=== PATIENT | male | born 1960 | race Caucasian/White ===

== ENCOUNTER 2018-04-06 08:00 | Inpatient (IN) | payer OTHER ==
--- NOTE | 2018-04-06 07:57 | HP ---
Admitting History and Physical - Admission Chief Complaint: left knee osteoarthritis x years History of Present Illness: 57 year old male presents today regarding his left knee. Longstanding history of left knee osteoarthritis. Patient complains of pain, limited ROM, difficulty ambulating and difficulty completing ADLs. Patient has failed conservative treatment measures including PO medication, activity modification, injections and an exercise program. At this point, patient wishes to proceed with surgical intervention - left total knee arthroplasty (MAKOplasty). History Source: Patient - Past Medical History Cardiovascular: Yes: HTN - Past Surgical History Additional Past Surgical History: See written history & physical. - Smoking History Smoking history: Current some day smoker Have you smoked in the past 12 months: Yes Aproximately how many cigarettes per day: 0 - Alcohol/Substance Use Hx Alcohol Use: Yes Home Medications - Allergies Allergies/Adverse Reactions: Allergies Allergy/AdvReac Type Severity Reaction Status Date / Time No Known Drug Allergies Allergy Verified 03/24/18 12:45 - Home Medications Home Medications: Ambulatory Orders Atenolol [Tenormin -] 25 mg PO DAILY 03/24/18 Review of Systems - Review of Systems Musculoskeletal: reports: Crepitus (left knee), Decreased ROM (left knee), Joint Pain (left knee), Joint Swelling (left knee) Physical Examination Constitutional: Yes: Well Nourished, No Distress Eyes: Yes: Conjunctiva Clear HENT: Yes: Atraumatic, Normocephalic Neck: Yes: Supple Cardiovascular: Yes: Regular Rate and Rhythm Respiratory: Yes: Regular Gastrointestinal: Yes: Soft ...Rectal Exam: Yes: Deferred Musculoskeletal: Yes: Joint Stiffness (left knee), Joint Swelling (left knee) Assessment/Plan 57 year old male presents today regarding his left knee. Longstanding history of left knee osteoarthritis. Patient complains of pain, limited ROM, difficulty ambulating and difficulty completing ADLs. Patient has failed conservative treatment measures including PO medication, activity modification, injections and an exercise program. At this point, patient wishes to proceed with surgical intervention - left total knee arthroplasty (MAKOplasty). Pros, cons, risks, benefits and alternatives of a left total knee arthroplasty (MAKOplasty) were discussed with the patient at length. Patient confirms his understanding and consents to proceed with a left total knee arthroplasty (MAKOplasty).
[~2018-04-06 08:00] MED LIST: CEFAZOLIN 2 GM/D5W 2 GM/50 ML ML IVPB ONE; CELECOXIB 200 MG CAPSULE PO ONE; GABAPENTIN 300 MG CAPSULE (FP) PO ONE; PANTOPRAZOLE 40 MG TABLET (FP) PO ONE; ROPIVICAINE 0.2%/MORPH PF/KETOROLAC - 51ML DISP.SYRINGE IA ONE; TRANEXAMIC ACID 1000 MG/10 ML VIAL IVPUSH ONE; oxyCODONE HCL 10 MG SUSTAINED ACTING TABLET PO ONE
[2018-04-06] MEDS ORDERED: ceFAZolin SODIUM 1 GM VIAL ONE ×2 (09:32→12:00)
[2018-04-06] MEDS ORDERED: VANCOMYCIN 1,000 MG VIAL (RESTRICTED TO ID ONLY) ONE (09:32)
[2018-04-06] MEDS ORDERED: TRANEXAMIC ACID 1000 MG/10 ML VIAL ONE ×3 (09:32→15:48)
[2018-04-06 09:51] VITALS: BMI 32.1
[2018-04-06] MEDS ORDERED: oxyCODONE HCL 10 MG SUSTAINED ACTING TABLET ONE (09:55)
[2018-04-06] MEDS ORDERED: GABAPENTIN 300 MG CAPSULE (FP) ONE (09:55)
[2018-04-06] MEDS ORDERED: PANTOPRAZOLE 40 MG TABLET (FP) ONE (09:55)
[2018-04-06] MEDS ORDERED: CELECOXIB 200 MG CAPSULE ONE (09:56)
[2018-04-06] MEDS ORDERED: BUPIVACAINE LIPOSOME/PF (EXPAREL) 266 MG/20 ML VIAL ONE (10:50)
[2018-04-06] MEDS ORDERED: MIDAZOLAM HCL 2 MG/2 ML SINGLE DOSE VIAL ONE ×2 (10:50→13:07)
[2018-04-06] MEDS ORDERED: BUPIVACAINE HCL/PF 2.5 MG/ML - 30 ML VIAL IJ ONE (10:50)
[2018-04-06] MEDS ORDERED: SUCCINYLCHOLINE CHLORIDE 200 MG/10 ML VIAL ONE (11:20)
[2018-04-06] MEDS ORDERED: ePHEDrine SULFATE 50 MG/1 ML AMPULE ONE (11:20)
[2018-04-06] MEDS ORDERED: PROPOFOL 20 ML ONE ×4 (12:01→15:21)
[2018-04-06] MEDS ORDERED: ONDANSETRON 4 MG/2 ML VIAL ONE ×2 (12:25→17:48)
[2018-04-06] MEDS ORDERED: DEXAMETHASONE SOD PHOSPHATE 4 MG/1 ML VIAL ONE (12:25)
[2018-04-06] MEDS ORDERED: KETOROLAC TROMETHAMINE 30 MG/1 ML VIAL ONE (12:25)
[2018-04-06] MEDS ORDERED: ROPIVICAINE 0.2%/MORPH PF/KETOROLAC - 51ML DISP.SYRINGE IA ONE ×2 (12:39→16:23)
[2018-04-06] MEDS ORDERED: ONDANSETRON 4 MG/2 ML VIAL IVPUSH PRN ×2 (16:10→17:19)
[2018-04-06] MEDS ORDERED: oxyCODONE HCL 5 MG TABLET PO PRN ×2 (16:10)
[2018-04-06] MEDS ORDERED: VANCOMYCIN 1,000 MG VIAL (RESTRICTED TO ID ONLY) IVPB ONE (16:21)
[2018-04-06] MEDS ORDERED: TRANEXAMIC ACID 1000 MG/10 ML VIAL IVPB ONE (16:22)
[2018-04-06] MEDS ORDERED: ACETAMINOPHEN INJECTION 100 ML IVPB ONE (17:09)
[2018-04-06] MEDS ORDERED: traMADol HCL 50 MG TABLET PO ONE (17:15)
--- NOTE | 2018-04-06 17:16 | OP ---
Operative Note - Note: Operative Date: 04/06/18 Pre-Operative Diagnosis: left knee OA Operation: left MIGUEL TKA Post-Operative Diagnosis: Same as Pre-op Surgeon: Zander Arroyo [employer]: Liz Padilla Anesthesia: Spinal Estimated Blood Loss (mls): 500
[2018-04-06] MEDS ORDERED: ACETAMINOPHEN 1000 MG/100 ML VIAL (NON FORMULARY) IVPB ONE ×2 (17:18→17:30)
[2018-04-06] MEDS ORDERED: traMADol HCL 50 MG TABLET ONE (17:18)
[2018-04-06] MEDS ORDERED: MAG HYDROX/AL HYDROX/SIMETH 30 ML UNIT-DOSE CUP PO PRN (17:19)
[2018-04-06] MEDS ORDERED: MAGNESIUM HYDROX 2400MG/30ML ORAL SUSPENSION 30 ML CUP PO PRN (17:19)
[2018-04-06] MEDS ORDERED: LACTATED RINGERS SOLUTION 1,000 ML IV SCH (17:30)
[2018-04-06] MEDS ORDERED: ONDANSETRON 4 MG/2 ML VIAL IVPUSH ONE (17:45)
[2018-04-06] MEDS: CEFAZOLIN 2 GM/D5W 2 GM/50 ML ML IVPB SCH (19:06)
[2018-04-06] MEDS: oxyCODONE HCL 10 MG SUSTAINED ACTING TABLET PO SCH (21:06)
[2018-04-06] MEDS: SENNOSIDES/DOCUSATE COMBO (SENNA PLUS) TABLET (UD) PO SCH (21:09)
[2018-04-06] MEDS: GABAPENTIN 300 MG CAPSULE (FP) PO SCH ×2 (21:09)
[2018-04-06] MEDS: ASCORBIC ACID 500 MG TABLET (FP) PO SCH (21:09)
[2018-04-06] MEDS: CELECOXIB 200 MG CAPSULE PO SCH (21:09)
[2018-04-06] MEDS: ACETAMINOPHEN 325 MG TABLET (FP) PO SCH (21:16)
[2018-04-06] MEDS: traMADol HCL 50 MG TABLET PO SCH (22:53)
[2018-04-06] MEDS: KETOROLAC TROMETHAMINE 30 MG/1 ML VIAL IVPUSH SCH (22:54)
[2018-04-07] MEDS: CEFAZOLIN 2 GM/D5W 2 GM/50 ML ML IVPB SCH (01:23)
[2018-04-07] MEDS ORDERED: DEXAMETHASONE SOD PHOSPHATE 10 MG/1 ML VIAL IVPB ONE (04:00)
[2018-04-07] MEDS: ACETAMINOPHEN 325 MG TABLET (FP) PO SCH ×5 (05:19→21:32)
[2018-04-07] MEDS: KETOROLAC TROMETHAMINE 30 MG/1 ML VIAL IVPUSH SCH ×3 (05:22→11:53)
[2018-04-07] MEDS: traMADol HCL 50 MG TABLET PO SCH ×4 (05:23→17:11)
[2018-04-07] MEDS: LACTATED RINGERS SOLUTION 1,000 ML IV SCH ×2 (08:03→17:11)
[2018-04-07 08:31] LABS: ANION GAP 6 MMOL/L (8-16); BLOOD UREA NITROGEN 22 mg/dl (7-18); CALCIUM 8.5 mg/dl (8.4-10.2); CHLORIDE 100 mmol/L (98-107); CO2 26 mmol/L (22-28); GLUCOSE,RANDOM 132 mg/dl (74-106); POTASSIUM 5.3 mmol/L (3.5-5.1); SODIUM 132 mmol/L (136-145)
[2018-04-07] MEDS: ASPIRIN 325 MG TABLET PO SCH (09:00)
[2018-04-07] MEDS: GABAPENTIN 300 MG CAPSULE (FP) PO SCH ×3 (09:12→21:32)
[2018-04-07] MEDS: CELECOXIB 200 MG CAPSULE PO SCH ×2 (09:12→21:31)
[2018-04-07] MEDS: MULTIVITAMINS (DAILY MVI) TABLET (FP) PO SCH (09:13)
[2018-04-07] MEDS: ASCORBIC ACID 500 MG TABLET (FP) PO SCH ×2 (09:13→21:31)
[2018-04-07] MEDS: PANTOPRAZOLE 40 MG TABLET (FP) PO SCH (09:14)
[2018-04-07] MEDS: ATENOLOL 25 MG TABLET (FP) PO SCH (09:14)
[2018-04-07] MEDS: oxyCODONE HCL 10 MG SUSTAINED ACTING TABLET PO SCH ×2 (09:15→21:31)
[2018-04-07] MEDS: SENNOSIDES/DOCUSATE COMBO (SENNA PLUS) TABLET (UD) PO SCH ×2 (09:15→21:31)
[2018-04-07 09:31] LABS: HEMATOCRIT 43.2 % (35.4-49); HEMOGLOBIN 14.2 GM/dl (11.7-16.9); MCH 30.9 pg (25.7-33.7); MCHC 32.9 g/dl (32.0-35.9); MEAN CELL VOLUME 93.9 fl (80-96); MEAN PLT VOLUME 8.9 fl (7.5-11.1); PLATELET COUNT 197 K/MM3 (134-434); WHITE BLOOD COUNT 8.7 K/mm3 (4.0-10.8)
--- NOTE | 2018-04-07 11:50 | PN ---
Progress Note (short form) - Note Progress Note: 57M POD1 s/p L TKR under spinal anesthetic with peripheral nerve blocks for post operative pain relief. Pt states that pain is well controlled. Reports mild decrease in sensation in ipsilateral LE and some nausea related to prn narcotics that has improved. Instructed not to take prn narcotics in absence of pain and advised that decrease in sensation is most likely due to nerve block and will improve when nerve blocks wear off. Will monitor.
[2018-04-08] MEDS: traMADol HCL 50 MG TABLET PO SCH ×3 (00:27→13:13)
[2018-04-08] MEDS: ACETAMINOPHEN 325 MG TABLET (FP) PO SCH ×2 (05:50→09:15)
[2018-04-08 06:20] VITALS: BP 135/90; PULSE 71; TEMP 98.2
[2018-04-08 07:58] LABS: ANION GAP 6 MMOL/L (8-16); BLOOD UREA NITROGEN 21 mg/dl (7-18); CALCIUM 8.2 mg/dl (8.4-10.2); CHLORIDE 99 mmol/L (98-107); CO2 28 mmol/L (22-28); GLUCOSE,RANDOM 106 mg/dl (74-106); POTASSIUM 4.7 mmol/L (3.5-5.1); SODIUM 133 mmol/L (136-145)
[2018-04-08 08:00] LABS: HEMATOCRIT 37.8 % (35.4-49); HEMOGLOBIN 12.9 GM/dl (11.7-16.9); MCHC 34.1 g/dl (32.0-35.9); MEAN CELL VOLUME 93.7 fl (80-96); MEAN PLT VOLUME 8.7 fl (7.5-11.1); PLATELET COUNT 163 K/MM3 (134-434); RBC 4.03 M/mm3 (4.00-5.60); RDW 11.9 % (11.9-15.9); WHITE BLOOD COUNT 7.5 K/mm3 (4.0-10.8)
--- NOTE | 2018-04-08 08:27 | PN ---
Progress Note (short form) - Note Progress Note: Pt seen and examined last night. Doing well. Nausea improved. AVSS Selected Entries 04/07/18 04/08/18 20:18 06:00 Temperature 97.9 F 98.2 F Pulse Rate 74 71 Respiratory 19 18 Rate Blood Pressure 139/78 135/90 O2 Sat by Pulse 96 Oximetry (%) Oxygen Delivery Room Air Method Laboratory Tests 04/07/18 04/07/18 04/08/18 07:35 07:35 07:15 WBC 8.7 7.5 Hgb 14.2 12.9 Hct 43.2 37.8 Plt Count 197 163 Sodium 132 L Potassium 5.3 H Chloride 100 Carbon Dioxide 26 Anion Gap 6 L BUN 22 H Creatinine 1.0 Creat Clearance w eGFR > 60 Random Glucose 132 H Calcium 8.5 04/08/18 07:15 WBC Hgb Hct Plt Count Sodium 133 L Potassium 4.7 Chloride 99 Carbon Dioxide 28 Anion Gap 6 L BUN 21 H Creatinine 1.0 Creat Clearance w eGFR > 60 Random Glucose 106 Calcium 8.2 L Gen: NAD LLE: c/d/i, NVID A/P s/p L MIGUEL TKA PT/OOB XRAY LEFT KNEE AFTER PT - pt had intraoperative fracture fixed with screws. Xray to check hardware placement before discharge home. D/C home after I review the xray. F/U in 2 weeks.
--- NOTE | 2018-04-08 08:32 | DS ---
Physical Examination Vital Signs: Vital Signs Temperature 98.2 F 04/08/18 06:00 Pulse Rate 71 04/08/18 06:00 Respiratory Rate 18 04/08/18 06:00 Blood Pressure 135/90 04/08/18 06:00 O2 Sat by Pulse Oximetry (%) 96 04/08/18 06:00 Labs: CBC, BMP 04/08/18 07:15 04/08/18 07:15 Discharge Summary Reason For Visit: LEFT KNEE OSTEOARTHRITIS Current Active Problems Osteoarthritis of left knee (Acute) Procedures: Principal: left MIGUEL TKA Hospital Course: Admitted for elective surgery. Procedure performed without complications. Pt received postoperative antibiotic prophylaxis and DVT ppx. Ambulated with physical therapy. Stable for discharge home with outpatient followup. Condition: Stable - Instructions Diet, Activity, Other Instructions: Dr. Arroyo - Knee Replacement Instructions Keep the Aquacel dressing on until removed by Dr. Arroyo in 10-14 days - it is antibacterial and waterproof and you can shower with it on. Call the office for a follow-up appointment with Dr. Arroyo in 10-14 days. [phone] Take one Aspirin 325mg daily for 6 weeks to prevent blood clots in your legs. Take one Pantoprazole 40mg daily for 6 weeks to protect against heartburn and ulcers. Take Cephalexin (antibiotic) 3x/day for 14 days to help prevent skin infection. Take Celebrex 200mg twice daily for 30 days to reduce swelling and inflammation. Take a multivitamin, stool softener, and extra Vitamin C supplement daily. For pain: *Mild pain (1-3/10): Take 1 Tramadol tablet every 4 hours as needed. Moderate pain (4-6/10): Take 1 Tramadol tablet and 1 Percocet tablet every 4 hours as needed. Severe pain (7-10/10): Take 1 Tramadol tablet and 2 Percocet tablets every 4 hours as needed. Activity: You can put as much weight on the operative leg as you want. Right after you get home, there will be a physical therapist coming to your house to help you walk around and bend/straighten your knee. After your follow-up appointment, you will be sent for more intensive outpatient physical therapy which will include machines and equipment that the home therapist cannot bring to your house. Always use a walker or cane for balance and to prevent falls. Expect to see swelling/bruising from the operative site all the way down to your toes. Wear the compression stocking on the operative side during the day to minimize how much swelling there is in your foot/ankle. Don't wear the stocking at night. You don't have to wear a stocking on the other side. Disposition: [facility]/HOME HEALTH CARE - Home Medications Comprehensive Discharge Medication List: Ambulatory Orders Atenolol [Tenormin -] 25 mg PO DAILY 03/24/18 Ascorbic Acid [Vitamin C -] 500 mg PO BID tablet 04/08/18 Aspirin [ASA -] 325 mg PO DAILY@0800 tablet 04/08/18 Celecoxib [CeleBREX -] 200 mg PO BID #60 capsule 04/08/18 Cephalexin Monohydrate [Keflex -] 500 mg PO TID #42 capsule 04/08/18 Multivitamins [Multivit ([facility] Formulary)] 1 tab PO DAILY tab 04/08/18 Oxycodone HCl/Acetaminophen [Percocet 5-325 mg Tablet] 1 - 2 tab PO Q4H PRN #60 tablet MDD 10 04/08/18 Pantoprazole Sodium [Protonix -] 40 mg PO DAILY #40 tablet.ec 04/08/18 Sennosides/Docusate Sodium [Pericolace -] 1 tablet PO BID tablet 04/08/18 traMADol HCL [Ultram -] 50 mg PO Q4H PRN #42 tablet MDD 6 04/08/18
[2018-04-08] MEDS: SENNOSIDES/DOCUSATE COMBO (SENNA PLUS) TABLET (UD) PO SCH (09:05)
[2018-04-08] MEDS: ASPIRIN 325 MG TABLET PO SCH (09:05)
[2018-04-08] MEDS: PANTOPRAZOLE 40 MG TABLET (FP) PO SCH (09:06)
[2018-04-08] MEDS: CELECOXIB 200 MG CAPSULE PO SCH (09:07)
[2018-04-08] MEDS: MULTIVITAMINS (DAILY MVI) TABLET (FP) PO SCH (09:08)
[2018-04-08] MEDS: ATENOLOL 25 MG TABLET (FP) PO SCH (09:08)
[2018-04-08] MEDS: ASCORBIC ACID 500 MG TABLET (FP) PO SCH (09:08)
[2018-04-08] MEDS: GABAPENTIN 300 MG CAPSULE (FP) PO SCH (09:08)
[2018-04-08] MEDS: oxyCODONE HCL 10 MG SUSTAINED ACTING TABLET PO SCH (09:15)
--- NOTE | 2018-04-08 12:42 | PN ---
Progress Note (short form) - Note Progress Note: Xray reviewed. No change in hardware. OK for discharge home.
--- NOTE | 2018-04-09 17:01 | PATH ---
Surgical Pathology Report Patient Name: TERRI FAIRCHILD Med. Rec. #: [id number] /Age/Gender: 1960 (Age: 57) / M Account: [id number] Location: [facility] MED-[facility]G Taken: 04/06/2018 Received: 04/06/2018 Reported: 04/09/2018 Physicians: Zander Arroyo M.D. Specimen(s) Received LEFT KNEE BONE Clinical History Left knee osteoarthritis Final Diagnosis BONE, KNEE, LEFT, TOTAL KNEE ARTHROPLASTY AND MAKOPLASTY: BONE WITH DEGENERATIVE JOINT DISEASE, DENSE FIBROCONNECTIVE TISSUE, AND ADIPOSE TISSUE. Electronically Signed Dulce Maria Whiteside M.D. Gross Description Received in formalin labeled "left knee bone," is a 14.0 x 12.5 x 2.0 cm aggregate of multiple portions of bone and soft tissue. The tibial plateau measures 8.5 x 5.5 x 1.6 cm. There is a 2.5 cm greatest dimension area of eburnation present. Remaining articular surfaces are matute-brown and diffusely granular. The underlying trabecular bone is yellow and hard. [employer] sections are submitted in one cassette, following decalcification. /04/08/201804/08/2018
== END 2018-04-08 13:39 | disposition home health service (06) | DRG 470 ==
LOC: FM/S 09:09
PROVIDERS: ADMIT Student in an Organized Health Care Education/Training Program; ATTEND Student in an Organized Health Care Education/Training Program
PROC: 8E0Y0CZ Robotic Assisted Procedure of Lower Extremity, Open Approach (ICD-10-PCS; 2018-04-06)
PROC: 0SRD0JZ Replacement of Left Knee Joint with Synthetic Substitute, Open Approach (ICD-10-PCS; principal; 2018-04-06 12:19)
DX: M17.12 Unilateral primary osteoarthritis, left knee (principal); I10 Essential (primary) hypertension
CPT/HCPCS: 36415; 73560-TC-LT-FY; 80048; 85027; 88305-TC; 88311-TC; 94760; 97116-GP; 97162-GP; J0131; J1100